=== PATIENT | female | born 1980 | race Caucasian/White ===

== ENCOUNTER 2022-04-23 14:29 | Outpatient (CLI) | payer OTHER, SELFPAY ==
--- NOTE | 2022-04-23 14:36 | MM_ITS ---
WS: [id number] BILATERAL 3D TOMOSYNTHESIS DIGITAL SCREENING MAMMOGRAPHY WITH CAD CLINICAL INFORMATION: Z12.39 - Encounter for other screening for malignant neop... HISTORY: Screening mammogram. No current complaints. COMPARISON: None. TECHNIQUE: Bilateral CC and MLO views. FINDINGS: The breasts are composed of heterogeneous fibroglandular density tissue, which can limit the detectio n of small underlying mass lesions. No suspicious mass, asymmetry, calcifications, or architectural d istortion. No evidence of malignancy. MM/[place] [id number] IMPRESSION: BI-RADS: 1-Negative FOLLOW UP: 1 Year Follow-up Recommend return to annual screening mammography.
== END 2022-04-23 14:30 | disposition home or self-care (01) ==
PROVIDERS: PCP Nurse Practitioner Family; Visit Provider Nurse Practitioner Family
DX: Z12.31 Encounter for screening mammogram for malignant neoplasm of breast (principal)
CPT/HCPCS: 77063; 77067

== ENCOUNTER → 2022-05-20 16:35 | Outpatient (BNVA) | payer OTHER, SELFPAY | PROVIDERS: PCP Nurse Practitioner Family; Visit Provider Emergency Medicine | DX: K52.9 Noninfective gastroenteritis and colitis, unspecified (principal) | CPT/HCPCS: 87177; 87209; 87493; 87506 ==

== ENCOUNTER → 2023-03-04 10:37 | Outpatient (BNVA) | payer OTHER, SELFPAY | PROVIDERS: Visit Provider Nurse Practitioner | DX: F32.A Depression, unspecified (principal); R53.83 Other fatigue; K92.1 Melena; K21.9 Gastro-esophageal reflux disease without esophagitis | CPT/HCPCS: 80053; 80061; 82306; 84443; 85025 ==

== ENCOUNTER 2023-04-08 06:35 | Day surgery (SDC) | payer OTHER, SELFPAY ==
--- NOTE | 2023-04-08 06:39 | W.PM.OPSFHP ---
Same Day Surgery H&P Indication for Procedure/HPI DATE OF PROCEDURE: April 08, 2023 CHIEF COMPLAINT/INDICATIONFOR SURGICAL PROCEDURE: Melena PREOP DIAGNOSIS: melena PLANNED PROCEDURE: Operation Date: 04/08/23 07:40 Proposed Procedures p [id number] egd [id number] colon G0121 screen colon A risk K92.1,K21.9(Not Applicable) - Roverto Freitas MD s Colonoscopy(Not Applicable) - Roverto Freitas MD Medications/Allergies* Home Medications Medication Instructions Recorded Confirmed Type fexofenadine 30 mg tablet 120 mg PO DAILY 04/04/23 04/04/23 History Allergies/Adverse Reactions Allergy/AdvReac Type Severity Reaction Status Date / Time No Known Allergies Allergy Verified 04/04/23 10:54 Pertinent History/Comorbid Conditions* Medical History (Updated 03/06/23 @ 16:56 by Roverto Freitas MD) Cervical cancer Depression Surgical History (Updated 03/29/22 @ 14:34 by Chelo Dukes NP) Previous section Family History (Updated 03/04/23 @ 10:07 by Naomy Jackson LPN) Chronic kidney disease (CKD) Father due to lithium Cancer Mother, Onset Age: 60 breast Grandmother paternal- ovarian Grandfather unknown cancer Hypertension Mother Thyroid disease Sister Denies family history of Diabetes Clotting disorder Bleeding disorder Stroke Social History Smoking and tobacco/nicotine status: never used tobacco/nicotine Alcohol intake: current Alcohol intake frequency: few times a month Pertinent Exam Findings alert, oriented x 3, clear to auscultation bilaterally and regular rate & rhythm Recommendations Surgery/Procedure today Coding Level of Care Code Acute Code for Chg Fwd Diagnoses
[2023-04-08 06:45] VITALS: BMI 28.3
[2023-04-08 06:56] VITALS: BP 127/76; PULSE 82; RESP 17; TEMP 36.3; O2SAT 95
[2023-04-08] MEDS: sodium chloride 0.9% 1,000 ML 30 ML IV (07:00)
[2023-04-08 08:03] LABS: OR HCG Qualitative Urine Negative (Negative)
[2023-04-08 08:09] VITALS: BP 105/67; PULSE 78; RESP 16; TEMP 36.1; O2SAT 92
--- NOTE | 2023-04-08 08:14 | ANE.PACU2 ---
Inpatient post-anesthesia follow up: Airway intact: Yes Vital signs: Temperature 97 F Pulse Rate 78 Respiratory Rate 16 Blood Pressure 105/67 Pulse Oximetry 92 Oxygen Delivery Me thod Room Air Oxygen Flow Rate Fraction of Inspir ed Oxygen Hydration adequate: Yes Nausea and vomiting: No Pain level: 1 Mental status: Baseline
[2023-04-08 08:19] VITALS: BP 108/78; PULSE 73; RESP 16; O2SAT 95
--- NOTE | 2023-04-08 08:43 | ANES.PREANE2 ---
Pre-Anesthetic Assessment Height/Weight: Height 1.65 m Weight 77.111 kg Temp Pulse Resp BP Pulse Ox O2 Del Method 97 F L 73 16 108/78 95 Room Air 04/08/23 08:09 04/08/23 08:19 04/08/23 08:19 04/08/23 08:19 04/08/23 08:19 04/08/23 08:19 Preop Diagnosis: melena Operation Date: 04/08/23 07:40 Proposed Procedures p [id number] egd [id number] colon G0121 screen colon A risk K92.1,K21.9(Not Applicable) - Roverto Freitas MD s Colonoscopy(Not Applicable) - Roverto Freitas MD Familial anesthetic complications: none Was Beta Reyes taken within 24 hours: N/A Was Clonidine taken within 24 hours: N/A Last intake: Intake Last Liquid Date 04/07/23 Last Liquid Time 21:30 Last Solid Date 04/06/23 Last Solid Time 20:00 Social No alcohol and No tobacco Exam alert, oriented x 3, clear to auscultation bilaterally and regular rate & rhythm Airway Submandibular: within normal limits Cervical ROM: within normal limits Mallampati: Class II Dentition: full GI Gastroesophageal Reflux Disease Neuropsych Anxiety and Depression Anesthetic Plan ASA status: 2 Anesthesia: MAC Medications/Allergies Home Medications Medication Instructions Recorded Confirmed Last Taken Type aripiprazole 2 mg tablet (Abilify) 2 mg PO DAILY #30 tabs 03/04/23 04/08/23 04/07/23 Rx norethindrone (contraceptive) 0.35 0.35 mg PO DAILY #84 tabs 03/04/23 04/08/23 04/07/23 Rx mg tablet omeprazole 40 mg capsule,delayed 40 mg PO DAILY #30 caps 03/04/23 04/08/23 04/07/23 Rx release sertraline 100 mg tablet 100 mg PO DAILY #90 tabs 03/04/23 04/08/23 04/07/23 Rx pantoprazole 40 mg tablet,delayed 40 mg PO BID 6 weeks #84 tabs 03/06/23 04/08/23 04/07/23 Rx release (Protonix) sucralfate 100 mg/mL oral 10 ml PO BID 6 weeks #840 mL 03/06/23 04/08/23 04/07/23 Rx suspension fexofenadine 30 mg tablet 120 mg PO DAILY 04/04/23 04/08/23 04/07/23 History Allergies Allergy/AdvReac Type Severity Reaction Status Date / Time No Known Allergies Allergy Verified 04/08/23 06:56 Current Medications Generic Name Dose Route Start Last Admin Trade Name Freq PRN Reason Stop Dose Admin Sodium Chloride 1,000 mls @ 30 mls/hr 04/08/23 06:45 04/08/23 08:14 Sodium Chloride 0.9% IV Infused .Q24H EDILMA Infusion PFSH Anesthesia Medical History Cervical cancer Depression Surgical History Previous section Family History Mother Hypertension Cancer, Onset Age: 60 breast Grandmother Cancer paternal- ovarian Grandfather Cancer unknown cancer Father Chronic kidney disease (CKD) due to lithium Sister Thyroid disease Denies family history of Diabetes Clotting disorder Bleeding disorder Stroke Social History Smoking and tobacco/nicotine status: never used tobacco/nicotine Alcohol intake: current Alcohol intake frequency: few times a month Female Reproductive History Date of last menstrual period: 03/10/23 Para: 2 Spontaneous abortions: No Data Anesthesia Cardiac Studies: No Data to Display
== END 2023-04-08 08:45 | disposition home or self-care (01) ==
PROVIDERS: Anesthesiology; PCP Nurse Practitioner; Visit Provider Surgery
PROC: 0DJ08ZZ Inspection of Upper Intestinal Tract, Via Natural or Artificial Opening Endoscopic (ICD-10-PCS; CPT 43235; principal; 2023-04-08 07:40)
PROC: 0DJD8ZZ Inspection of Lower Intestinal Tract, Via Natural or Artificial Opening Endoscopic (ICD-10-PCS; CPT 45378; 2023-04-08 07:40)
DX: K92.1 Melena (principal); K21.9 Gastro-esophageal reflux disease without esophagitis; K29.50 Unspecified chronic gastritis without bleeding; K29.80 Duodenitis without bleeding; Z85.41 Personal history of malignant neoplasm of cervix uteri; F32.A Depression, unspecified
CPT/HCPCS: 43239; 45378; 81025; 84703; 88305; 88342; J2704; J7030

== ENCOUNTER → 2024-02-19 08:49 | Outpatient (BNVA) | payer OTHER, SELFPAY | PROVIDERS: PCP Nurse Practitioner; Visit Provider Nurse Practitioner | DX: R53.83 Other fatigue (principal) | CPT/HCPCS: 80053; 84443; 85025 ==

== ENCOUNTER 2024-05-14 08:09 | Outpatient (CLI) | payer OTHER, SELFPAY ==
--- NOTE | 2024-05-14 08:30 | US_ITS ---
WS: [id number] RIGHT UPPER QUADRANT ULTRASOUND HISTORY: R10.11 - Right upper quadrant pain COMPARISON: None available. Liver: 15.1 cm in length. Normal size liver and echogenicity. No bile duct dilatation or mass. Portal Vein: Normal hepatopetal flow with monophasic waveform. Gallbladder: Normally distended gallbladder with no stones or wall thickening. CBD: 0.3 cm Pancreas: Normal size and echogenicity. Right kidney: 11.7 cm in length. Normal size and echogenicity. No hydronephrosis or mass. Aorta and IVC: Unremarkable abdominal aorta and IVC. No ascites. US/US abdomen complete* [id number] IMPRESSION: Normal right upper quadrant ultrasound.
== END 2024-05-14 08:10 | disposition home or self-care (01) ==
LOC: RAD 08:09
PROVIDERS: PCP Nurse Practitioner; Visit Provider Nurse Practitioner
DX: R10.11 Right upper quadrant pain (principal)
CPT/HCPCS: 76700